=== PATIENT | male | born 1985 | race Caucasian/White ===

== ENCOUNTER 2018-06-28 | Emergency (ER) | payer MEDICAID ==
[~2018-06-28] VITALS: Ht 177.8 cm; Wt 81.6 kg
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
[2018-06-28] MEDS ORDERED: NKM (00:03)
--- NOTE | 2018-06-28 00:27 | NUR ---
FAMILY MEMBER CALLED STATES CALL THEM WHEN HE GET DISCHARDED HOME TL#[phone]
[2018-06-28 00:40] VITALS: BP 154/122
--- NOTE | 2018-06-28 01:00 | NUR ---
ER Nurse Note: Pt a&ox4, VSS, no signs of distress. Fluids infusing [id number]; tolerating well. All labs sent; awaiting results; will continue to montior.
[2018-06-28 01:13] LABS: ANION GAP 11 mmol/L (5-15); BLOOD UREA NITROGEN 4 mg/dL (7-18); CALCIUM 9.6 MG/DL (8.5-10.1); CARBON DIOXIDE 26 MMOL/L (21-32); CHLORIDE 99 MMOL/L (98-107); POTASSIUM 4.3 MMOL/L (3.5-5.1); SODIUM 136 MMOL/L (136-145)
[2018-06-28 01:18] LABS: ALANINE AMINOTRANSFERASE 85 U/L (12-78); ALBUMIN 4.4 G/DL (3.4-5.0); ALBUMIN/GLOBULIN RATIO 0.9 (1.0-2.7); ALKALINE PHOSPHATASE 114 U/L (46-116); ASPARTATE AMINO TRANSFERASE 84 U/L (15-37); BILIRUBIN,TOTAL 0.5 MG/DL (0.2-1.0)
[2018-06-28 02:20] VITALS: BP 126/94
--- NOTE | 2018-06-28 02:20 | NUR ---
ER Nurse Note: Pt seen, treated, medically cleared by ERMD for discharge. Discharge instructions and prescriptions given with repeat verbalization by pt. Instructed pt to follow up with primary care phyican within one weel. Pt a&ox4, VSS, no signs of distress. IV removed, site clean and bandaged. ID band removed; left with all belongings on steady gait, via own transportation.
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
== END 2018-06-28 02:20 | disposition home or self-care (01) ==
LOC: EDBD → EMR 00:21
DX: T50.901A Poisoning by unspecified drugs, medicaments and biological substances, accidental (unintentional), initial encounter (principal); X58.XXXA Exposure to other specified factors, initial encounter; Y92.9 Unspecified place or not applicable; R00.0 Tachycardia, unspecified
CPT/HCPCS: 36415; 80053; 80307; 80329; 93005; 96360; 96361; 99284